=== PATIENT | female | born 1970 | race Caucasian/White ===

== ENCOUNTER → 2016-07-25 | Outpatient (CLI) | payer BC, OTHER ==
[~2016-07-25] MED LIST: CELEXA20 MG PO; PERCOCET 7.5-31 EACH PO
[2016-07-25 08:57] LABS: HEMOGLOBIN 14.1 gm/dl (12.3-15.3); RED BLOOD COUNT 4.33 M/UL (4.00-5.10); WHITE BLOOD COUNT 7.3 K/UL (4.5-11.0)
[2016-07-25 09:13] LABS: BUN/CREATININE RATIO 31 (0-10)
== END ==
LOC: OPSV2 07-24 09:00 → EDSTATUS 08:00 → OPSV2 08:00
PROVIDERS: Orthopaedic Surgery
DX: Z01.812 Encounter for preprocedural laboratory examination (principal); D16.22 Benign neoplasm of long bones of left lower limb
CPT/HCPCS: 36415; 80048; 85027

== ENCOUNTER → 2016-07-31 | Day surgery (SDC) | payer BC, SELFPAY ==
[~2016-07-31] VITALS: Ht 160 cm; Wt 87.1 kg
== END | disposition home or self-care (01) ==
LOC: OR 08:56
PROVIDERS: Orthopaedic Surgery
PROC: 0YBB0ZZ Excision of Left Lower Extremity, Open Approach (ICD-10-PCS; principal; 2016-07-31 13:30)
DX: D16.22 Benign neoplasm of long bones of left lower limb (principal); F17.210 Nicotine dependence, cigarettes, uncomplicated; F41.9 Anxiety disorder, unspecified; F32.9 Major depressive disorder, single episode, unspecified; Z87.09 Personal history of other diseases of the respiratory system; Z79.891 Long term (current) use of opiate analgesic; Z79.899 Other long term (current) drug therapy; Z90.710 Acquired absence of both cervix and uterus; Z98.51 Tubal ligation status
CPT/HCPCS: 73552; 76000; J0690; J1100; J1885; J2250; J2405; J2765; J2795; J3010; J7120